=== PATIENT | female | born 1965 | race Caucasian/White ===

== ENCOUNTER 2020-08-20 07:47 | Day surgery (SDC) | payer MEDICARE, MEDICAID, SELFPAY ==
[2020-08-16 15:35] VITALS: BMI 25.4
--- NOTE | 2020-08-19 09:19 | HO.ANESPROP2 ---
Documented by User: Fariha Murcia 08/19/20 09:20 HPI - Anesthesia Eval Consult details Narrative: 54yo F for Colonoscopy chronic opioids [facility] Past Medical History Medical History (Updated 08/16/20 @ 15:39 by Regina West) Arthritis Back pain COPD (chronic obstructive pulmonary disease) History of colitis Lab test negative for COVID-19 virus Surgical History Surgical History (Updated 08/16/20 @ 15:39 by Regina West) H/O colonoscopy History of bunionectomy History of total right knee replacement Hx of cosmetic plastic surgery Hx of elbow surgery Hx of foot surgery Hx of neck surgery Social History Social History Smoking Status: Former smoker Cigarettes Per Day: 3 Years Smoked: 20 Smoked in Last 30 Days: Yes Smoking Quit Date: 04/2020 Use of substances other than those prescribed or required for medical reasons: No Advance Directives Information Provided: No Recently lost weight without trying: No Meds Allergies Allergy/AdvReac Type Severity Reaction Status Date / Time bee pollen [bee stings] Allergy Severe Anaphylaxis Verified 08/16/20 15:43 amoxicillin Allergy Intermediate Hives Verified 08/16/20 15:43 clavulanic acid Allergy Intermediate Hives Verified 08/16/20 15:43 [From Augmentin] Penicillins Allergy Intermediate Hives Verified 08/16/20 15:43 Home Medications Medication Instructions Recorded Confirmed Last Taken Type hydrocodone-acetaminophen 1 tab PO Q4-6H PRN 08/16/20 08/16/20 Unknown History umeclidinium [Incruse Ellipta] 1 inh INHALATION BID 08/16/20 08/16/20 Unknown History Exam Exam Date and Time: August 19, 2020 0919 Height,Weight and Vital Signs: Height 5 ft 4 in Weight 67.132 kg Assessment and Plan Assessment Anesthesia Assessment: Chart Reviewed Documented by User: Deepika Crowell 08/20/20 09:16 [facility] Past Medical History Medical History (Updated 08/16/20 @ 15:39 by Regina West) Arthritis Back pain COPD (chronic obstructive pulmonary disease) History of colitis Lab test negative for COVID-19 virus Family History Family history of problems with anesthesia: No Surgical History Surgical History (Updated 08/16/20 @ 15:39 by Regina West) H/O colonoscopy History of bunionectomy History of total right knee replacement Hx of cosmetic plastic surgery Hx of elbow surgery Hx of foot surgery Hx of neck surgery History of Problems with Anesthesia: No Social History Social History Smoking Status: Former smoker Cigarettes Per Day: 3 Years Smoked: 20 Smoked in Last 30 Days: Yes Smoking Quit Date: 04/2020 Use of substances other than those prescribed or required for medical reasons: No Advance Directives Information Provided: No Recently lost weight without trying: No Meds Allergies Allergy/AdvReac Type Severity Reaction Status Date / Time bee pollen [bee stings] Allergy Severe Anaphylaxis Verified 08/16/20 15:43 amoxicillin Allergy Intermediate Hives Verified 08/16/20 15:43 clavulanic acid Allergy Intermediate Hives Verified 08/16/20 15:43 [From Augmentin] Penicillins Allergy Intermediate Hives Verified 08/16/20 15:43 Home Medications Medication Instructions Recorded Confirmed Last Taken Type hydrocodone-acetaminophen 1 tab PO Q4-6H PRN 08/16/20 08/16/20 Unknown History umeclidinium [Incruse Ellipta] 1 inh INHALATION BID 08/16/20 08/16/20 Unknown History Exam Height,Weight and Vital Signs: Vital Signs Temp Pulse Resp BP Pulse Ox 08/20/20 08:34 98.3 F 67 20 129/87 99 Airway Mallampati Class: II TM Dist: >3cm Neck ROM: Full Heart: RRR Lungs: CTAB Assessment and Plan Assessment Anesthesia Assessment: Anesthesia Plan Discussed and Chart Reviewed Final Anesthetic Review NPO: Yes ASA Class: II Final Preanesthetic Review: No Changes in Pt Med Stat, Meds/Allgs Chart Reviewed, Consent Obtained/Reviewed and Anes Risks/Benef Reviewed Patient Risk: Low Procedure Risk: Low Assessment/Block/Sedation in SS: Assess/Block/Sedation-SS Anesthetic Plan Anesthetic Plan: MAC: Disposition: Standard PACU
[2020-08-20 08:34] VITALS: BP 129/87; PULSE 67; RESP 20; TEMP 36.8; O2SAT 99
--- NOTE | 2020-08-20 08:56 | MHC.SHP ---
Pre-Procedural Eval Section A The patient is an INPATIENT: No Changes since office visit: No Cold of Flu in the past 2 weeks, No New Medical Problems, No Changes in Medication and No Patient answered all questions The History & Physical has been completed within 30 days and I have reviewed it.: Yes Section B Chief Complaint: epigastric pain Allergies: Allergies Allergy/AdvReac Type Severity Reaction Status Date / Time bee pollen [bee stings] Allergy Severe Anaphylaxis Verified 08/16/20 15:43 amoxicillin Allergy Intermediate Hives Verified 08/16/20 15:43 clavulanic acid Allergy Intermediate Hives Verified 08/16/20 15:43 [From Augmentin] Penicillins Allergy Intermediate Hives Verified 08/16/20 15:43 Plan I have reviewed the history and physical and performed a pertinent physical examination on my patient. No changes have occurred unless specified.
[2020-08-20] MEDS: Lactated Ringers 1,000 ML 100 ML IVCONT (09:01)
[2020-08-20 09:30] VITALS: BP 127/88; PULSE 72; RESP 16; TEMP 36.5; O2SAT 99
--- NOTE | 2020-08-20 09:30 | PM.OP ---
Brief Operative Note Date of Service: 08/20/20 Pre-op diagnosis: change in bowels, colitis Post-op diagnosis: other (colitis, ileitis, colon polyp) Procedure: colonoscopy Surgeon: John Chamberlain Anesthesia: MAC Estimated blood loss (mL): 5 Pathology: other (bxs ileum,cecum, r colon, polyp 35cm, sigmoid) Condition: stable Disposition: PACU
[2020-08-20 09:45] VITALS: BP 152/86; PULSE 70; RESP 18; TEMP 36.5; O2SAT 97
--- NOTE | 2020-08-20 10:16 | OP_ITS ---
SURGEON: John Chamberlain MD PREOPERATIVE DIAGNOSIS: POSTOPERATIVE DIAGNOSIS: PROCEDURE PERFORMED: Colonoscopy to the terminal ileum with biopsy. ESTIMATED BLOOD LOSS: COMPLICATIONS: ANESTHESIA: ASSISTANTS: SPECIMENS: INDICATION: Change in bowel habits and colitis. MEDICATIONS: Monitored anesthesia care. DESCRIPTION OF PROCEDURE: History and physical was performed. The risks and benefits of the procedure were explained to the patient and informed consent was obtained. The patient was placed in the left lateral decubitus position. A digital rectal exam was performed and was found to be normal. The Olympus pediatric video colonoscope was introduced into the rectum and advanced to the cecum without difficulty. The cecum was identified by transillumination, palpation, and identification of ileocecal valve. Examination was performed, the scope was removed. She tolerated the procedure well and was returned to Recovery in stable condition. FINDINGS: The terminal ileum showed mild nonspecific ileitis with several less than 5 mm areas of inflammation with erythema and very superficial ulceration. There was also a focal area of colitis measuring approximately 3 cm in diameter involving the area of the appendiceal orifice. Biopsies were obtained from the abnormal mucosa. The remainder of the colon appeared normal. Biopsies were obtained from the right colon and sigmoid colon. There was a small less than 5 mm sessile polyp at 35 cm, which was removed with biopsy forceps. No other polyps were identified. The quality of prep was good. Retroflexed examination showed moderate-sized internal hemorrhoids. IMPRESSION: 1. Ileitis. 2. Focal colitis as above. 3. Colon polyp. 4. Hemorrhoids. RECOMMENDATION: Follow up with the biopsy results. MD AVANI Marks/MODL / [id number]
== END 2020-08-20 10:25 ==
LOC: HO.SSS 07:47
PROVIDERS: PCP Internal Medicine; Visit Provider Internal Medicine Gastroenterology
PROC: 0DJD8ZZ Inspection of Lower Intestinal Tract, Via Natural or Artificial Opening Endoscopic (ICD-10-PCS; CPT 45378; principal; 2020-08-20 09:20)
DX: R19.4 Change in bowel habit (principal); K52.9 Noninfective gastroenteritis and colitis, unspecified; D12.5 Benign neoplasm of sigmoid colon; D12.6 Benign neoplasm of colon, unspecified; K64.8 Other hemorrhoids; Z88.0 Allergy status to penicillin
CPT/HCPCS: 45380; 88305

== ENCOUNTER 2024-02-01 09:13 | Day surgery (SDC) | payer MEDICARE, MEDICAID, SELFPAY ==
[2024-01-30 14:26] VITALS: BMI 22.1
--- NOTE | 2024-01-31 09:09 | HO.ANESPROP2 ---
Documented by User: Fariha Murcia NP 01/31/24 09:10 HPI - Anesthesia Eval Consult details Narrative: 58yo F for Upper Endoscopy and Colonoscopy [facility] Past Medical History Medical History Depression Lung nodules History of colitis Arthritis Back pain COPD (chronic obstructive pulmonary disease) Family History Family history of problems with anesthesia: No Surgical History Surgical History History of partial hysterectomy Hx of cosmetic plastic surgery Hx of elbow surgery Hx of foot surgery History of bunionectomy H/O colonoscopy Hx of neck surgery History of total right knee replacement History of Problems with Anesthesia: No Social History Social History Patient Tobacco Use Status: Current someday Tobacco user Tobacco use type: Cigarette Cigarettes Per Day: 3 Years Smoked: 20 Use of substances other than those prescribed or required for medical reasons: No Are you DNR?: No Advance Directives: No Advance Directives Information Provided: Yes Meds Allergies Allergy/AdvReac Type Severity Reaction Status Date / Time bee pollen [bee stings] Allergy Severe Anaphylaxis Verified 08/16/20 15:43 amoxicillin Allergy Intermediate Hives Verified 08/16/20 15:43 clavulanic acid Allergy Intermediate Hives Verified 08/16/20 15:43 [From Augmentin] Penicillins Allergy Intermediate Hives Verified 08/16/20 15:43 Home Medications ?Medication ?Instructions ?Recorded ?Confirmed ?Last Taken ?Type hydrocodone 10 mg-acetaminophen 1 tab PO Q4-6H PRN Pain 08/16/20 01/30/24 Unknown History 325 mg tablet albuterol sulfate 90 mcg/actuation 2 puff inhalation Q4H PRN 01/30/24 01/30/24 Unknown History aerosol inhaler (Ventolin HFA) Shortness Of Breath Or Wheezing fluticasone furoate 100 1 inh inhalation DAILY 01/30/24 01/30/24 Unknown History mcg/actuation blister powder for inhalation (Arnuity Ellipta) fluticasone propionate 50 1 spray intranasal DAILY 01/30/24 01/30/24 Unknown History mcg/actuation nasal spray,suspension sertraline 100 mg tablet 150 mg PO DAILY 01/30/24 01/30/24 Unknown History Exam Height,Weight and Vital Signs: Height 5 ft 4 in Weight 58.513 kg Assessment and Plan Assessment Anesthesia Assessment: Chart Reviewed Final Anesthetic Review Family History of Problems with Anesthesia: No History of Problems with Anesthesia: No Documented by User: Erica Adam MD 02/01/24 11:01 [facility] Past Medical History Medical History Depression Lung nodules History of colitis Arthritis Back pain COPD (chronic obstructive pulmonary disease) Surgical History Surgical History History of partial hysterectomy Hx of cosmetic plastic surgery Hx of elbow surgery Hx of foot surgery History of bunionectomy H/O colonoscopy Hx of neck surgery History of total right knee replacement Social History Social History Patient Tobacco Use Status: Current someday Tobacco user Tobacco use type: Cigarette Cigarettes Per Day: 3 Years Smoked: 20 Use of substances other than those prescribed or required for medical reasons: No Are you DNR?: No Advance Directives: No Advance Directives Information Provided: Yes Meds Allergies Allergy/AdvReac Type Severity Reaction Status Date / Time bee pollen [bee stings] Allergy Severe Anaphylaxis Verified 08/16/20 15:43 amoxicillin Allergy Intermediate Hives Verified 08/16/20 15:43 clavulanic acid Allergy Intermediate Hives Verified 08/16/20 15:43 [From Augmentin] Penicillins Allergy Intermediate Hives Verified 08/16/20 15:43 Home Medications ?Medication ?Instructions ?Recorded ?Confirmed ?Last Taken ?Type hydrocodone 10 mg-acetaminophen 1 tab PO Q4-6H PRN Pain 08/16/20 01/30/24 Unknown History 325 mg tablet albuterol sulfate 90 mcg/actuation 2 puff inhalation Q4H PRN 01/30/24 01/30/24 Unknown History aerosol inhaler (Ventolin HFA) Shortness Of Breath Or Wheezing fluticasone furoate 100 1 inh inhalation DAILY 01/30/24 01/30/24 Unknown History mcg/actuation blister powder for inhalation (Arnuity Ellipta) fluticasone propionate 50 1 spray intranasal DAILY 01/30/24 01/30/24 Unknown History mcg/actuation nasal spray,suspension sertraline 100 mg tablet 150 mg PO DAILY 01/30/24 01/30/24 Unknown History Exam Airway Mallampati Class: II TM Dist: >3cm Neck ROM: Full Heart: rrr Lungs: cta Assessment and Plan Assessment Anesthesia Assessment: Anesthesia Plan Discussed Final Anesthetic Review NPO: Yes ASA Class: III Final Preanesthetic Review: No Changes in Pt Med Stat, Meds/Allgs Chart Reviewed, Consent Obtained/Reviewed and Anes Risks/Benef Reviewed Patient Risk: Intermediate Procedure Risk: Low Anesthetic Plan Anesthetic Plan: MAC: Disposition: Standard PACU
[2024-02-01 10:12] VITALS: BP 125/80; PULSE 62; RESP 18; TEMP 36.3; O2SAT 96
--- NOTE | 2024-02-01 10:16 | MHC.SHP ---
Pre-Procedural Eval Section A - 24 Hr Update-Section A only Date of Service: 02/01/24 Section B - Complete if H&P > 30 days Chief Complaint: gerd,change in bowel habit Details of Present Illness: see H&P no changes Relevant Family History (Specify if Yes): No Relevant Social History: None Present Medications: see Short Stay Collaborative assessment Medical History: No relevant PMH History of Previous Operations: No relevant previous surgery Allergies: Allergies Allergy/AdvReac Type Severity Reaction Status Date / Time bee pollen [bee stings] Allergy Severe Anaphylaxis Verified 08/16/20 15:43 amoxicillin Allergy Intermediate Hives Verified 08/16/20 15:43 clavulanic acid Allergy Intermediate Hives Verified 08/16/20 15:43 [From Augmentin] Penicillins Allergy Intermediate Hives Verified 08/16/20 15:43 Review of Systems Sugical H&P ROS: Negative: Constitution, Cardiovascular, Respiratory, Neurological, Psychiatric, Hem-Onc, Allergic/Immunologic, Gastrointestinal, Genitourinary, Musculoskeletal, Integumentary, Endocrine and Eyes/Ears/Nose/Throat Exam Surgical H&P Exam: Normal: HEENT, Normal: Heart, Normal: Lungs, Normal: Extremities, Normal: Abdomen, Normal: Skin and Normal: Neurological Plan Diagnosis/Plan: Unchanged I have reviewed the history and physical and performed a pertinent physical examination on my patient. No changes have occurred unless specified. Time Spent With Patient Time: Total time managing care of this patient today ____ minutes.
[2024-02-01] MEDS: Lactated Ringers 1,000 ML 100 ML IVCONT (10:21)
[2024-02-01] MEDS: Albuterol Sulfate (0.083%) 2.5 MG/3 ML VIAL.NEB INHALE (10:27)
--- NOTE | 2024-02-01 12:32 | PC.NURSE ---
pt updated throughout preop stay. delay in room due to prolonged procedure of pt before her and anesthesia unavailability. frequent checks for comfort with warm blankets appiled and bathroom breaks x2. pt unhappy regarding wait
[2024-02-01 13:22] VITALS: BP 131/71; PULSE 71; RESP 16; TEMP 36.3; O2SAT 97
[2024-02-01 13:37] VITALS: BP 148/85; PULSE 64; RESP 16; TEMP 36.3; O2SAT 99
--- NOTE | 2024-02-01 21:05 | OP_ITS ---
DATE OF SERVICE: 02/01/2024 SURGEON: John Chamberlain MD INDICATIONS: Gastroesophageal reflux disease and change in bowel habits. PREOPERATIVE DIAGNOSIS: POSTOPERATIVE DIAGNOSIS: PROCEDURE PERFORMED: ESTIMATED BLOOD LOSS: COMPLICATIONS: ANESTHESIA: Monitored anesthesia care. ASSISTANTS: SPECIMENS: PROCEDURES PERFORMED: Upper endoscopy with biopsy, colonoscopy to the terminal ileum with biopsy. DESCRIPTION OF PROCEDURE: A history and physical were performed. The risks and benefits of the procedure were explained to the patient, and informed consent was obtained. The patient was placed in the left lateral decubitus position. The Olympus video gastroscope was introduced into the esophagus, stomach, and duodenum. Examination was performed, and the scope was removed. She was repositioned for colonoscopy. A digital rectal exam was performed and was found to be normal. The Olympus pediatric video colonoscope was introduced into the rectum and advanced to the cecum. The cecum was identified by transillumination, palpation, and identification of ileocecal valve. Examination was performed, and the scope was removed. She tolerated the procedure well and was returned to recovery in stable condition. FINDINGS: Upper endoscopy: 1. Esophagus. The esophagus showed an irregular EG junction. There was a 4 cm hiatal hernia. Biopsies were obtained from the EG junction. 2. Stomach. The stomach was normal. There was no ulceration. Biopsies were obtained from the antrum. 3. Duodenum, the bulb and second portion were normal. Biopsies were obtained from the 2nd portion. Colonoscopy: The terminal ileum was examined and appeared normal. This was biopsied. The colon showed a thin coating of stool, which limited the sensitivity of the examination for detection of small polyps. This was washed and suctioned. This was present throughout the colon. After irrigation, no colitis was identified endoscopically. The area around the ileocecal valve and the appendiceal orifice was carefully washed and examined. Biopsies were obtained from the cecum, right colon, sigmoid colon and retroflexed examination was normal. There were moderate-sized internal hemorrhoids. IMPRESSION: 1. Hiatal hernia. 2. Gastroesophageal reflux disease. 3. Normal colonoscopy. RECOMMENDATIONS: 1. Follow up the biopsy results. 2. Repeat colonoscopy is recommended in 10 years for average-risk individuals. MD AVANI Marks/FERNANDA / [id number]
== END 2024-02-01 13:55 | disposition home or self-care (01) ==
PROVIDERS: PCP Internal Medicine; Visit Provider Internal Medicine Gastroenterology
PROC: (CPT 45380; principal; 2024-02-01 11:10)
DX: R19.4 Change in bowel habit (principal); Z83.719 Family history of colon polyps, unspecified; K64.8 Other hemorrhoids; K21.9 Gastro-esophageal reflux disease without esophagitis; K22.89 Other specified disease of esophagus; K44.9 Diaphragmatic hernia without obstruction or gangrene; Z87.19 Personal history of other diseases of the digestive system; J44.9 Chronic obstructive pulmonary disease, unspecified; R91.8 Other nonspecific abnormal finding of lung field; M54.50 Low back pain, unspecified; Z79.899 Other long term (current) drug therapy; Z79.51 Long term (current) use of inhaled steroids; Z88.0 Allergy status to penicillin; Z88.1 Allergy status to other antibiotic agents; Z98.890 Other specified postprocedural states; F17.210 Nicotine dependence, cigarettes, uncomplicated
CPT/HCPCS: 45380; 43239; 88305; 88313; 88342; J1100; J2250; J2704

== ENCOUNTER 2025-03-17 06:33 | Day surgery (SDC) | payer MEDICARE, MEDICAID, SELFPAY ==
--- OUTSIDE RECORDS SUMMARY | 2025-02-23 09:15 | XMS_ITS ---
Author Organization [facility] Address [address] [place] [phone] Care Team Providers Care Recreation Technician Name Role Phone Rach CASPER, Adair Primary Care Provider Buzz Chamberlain Jr, John Canseco MJ DICKERSON Unavailable Unavailable REASON FOR VISIT gerd Encounters Encounter Location Date Provider Diagnosis [facility] [address] [place] [phone] 02/23/2025 John Chamberlain Jr Plan Of Treatment Next Appt Details Provider Name:John santoyo Jr, 03/17/2025 01:40:00 PM, [address] [place] [address], [id number], Progress Notes * LASHELL JUNIOR LDOB:[birth year] (59 yo F)Acc No.[id number]:02/23/2025 Progress Notes Patient: Eusebio GOLDLASHELL Provider: Robby Chamberlain MD :1965 A ge:59 Y S ex:Female Date:02/23/2025 Address:[address] [id number] Pcp:Adair Loyd MD Subjective: * Chief Complaints: * 1 . Gerd. * Medical History: Objective: * Vitals: Assessment: Plan: * Treatment: * * The named appointment provid er may or may not be the originator of this progress note, and it is not deemed complete until electronically signed by the appointment provider. Sign off status: Pending * Provider: Robby Chamberlain MD Date: 0 02/23/2025 Generated for Gerry gallardo/Tiffani/Romina on: 0 03/11/2025 11:54 AM EDT
--- OUTSIDE RECORDS SUMMARY | 2025-03-06 11:54 | XMS_ITS ---
Author Organization [facility] Address [address] [place] [phone] Care Team Providers Care Registered Medical Assistant Name Role Phone Rach CASPER, Adair Primary Care Provider Buzz Chamberlain Jr, John Canseco [phone] TUANMJ Unavailable Unavailable REASON FOR VISIT colonoscopy Problems Problem Type SNOMED Code ICD Code Onset Dates Problem Status W/U Status Risk Notes Problem Information temporarily unavailable Abn findings-GI tract (R93.3) Active confirmed Problem Information temporarily unavailable Diarrhea (R19.7) Active confirmed Encounters Encounter Location Date Provider Diagnosis [facility] [address] [place] [phone] 03/06/2025 John Chamberlain Jr Abn findings-GI tract R93.3 and Diarrhea R19.7 Assessments Encounter Date Diagnosis (ICD Code) Assessment Notes Treatment Notes Treatment Clinical Notes Section Notes 03/06/2025 Abn findings-GI tract (ICD-10 - R93.3) 03/06/2025 Diarrhea (ICD-10 - R19.7) Plan Of Treatment Future Test Test Name Order Date COLONOSCOPY 03/06/2025 Next Appt Details Provider Name:John santoyo Jr, 03/17/2025 01:40:00 PM, [address] [place] [address] , [place], [place], [phone], Progress Notes * LASHELL JUNIOR LDOB:[birth year] (59 yo F)Acc No.[id number]:03/06/2025 Patient: LASHELL VIVAR :1965 A ge:59 Y S ex:Female Address:[address] [place] [address], [id number] Subjective: * Chief Complaints: * C olonoscopy * Medical History: * Surgical History: * Hospitalization/Major Diagno stic Procedure: * Medications: Objective: * Vitals: * Physical Examination: Assessment: * Assessment: 1. A bn findings-GI tract - R93.3 (Primary) 2 . D iarrhea - R19.7 ? Plan: * Treatment: 2. D iarrhea P rocedure: COLONOSCOPY (Ordered for 03/06/2025) * Procedure Codes: * true * Date: Generated for Gerry gallardo/Tiffani/Cristobalitting on: 0 03/11/2025 11:50 AM EDT
--- OUTSIDE RECORDS SUMMARY | 2025-03-11 11:51 | XMS_ITS | Encounter Summary ---
Author Organization [facility] Address [address] [facility] [address] [place] [phone] Phone Care Team Providers Care Flower Planter Name Role Phone Adair Loyd DO Primary Care Provider [phone] Self-Referred, Patient Unavailable Unavailab le Encounter Details Date Type Department Care Team (Late st Contact Info) Description 08/08/2021 Procedure Pass [facility] [address] [place] [address] Social History Tobacco Use Types Packs/Day Years Used Date Smoking Tobacco: Every Day Cigarettes 0.3 30 Smokeless Tobacco: Never Alcohol Use Standard Drinks/Week Comments Yes 0 (1 standard drink = 0.6 oz pur e alcohol) social Comments No Sex and Gender Information Value Date Recorded Sex Assigned at Not on file Legal Sex Female 10:54 AM EST Gender Identity Not on file Sexual Orientation Not on file documented as of this encounter Plan of Treatment Not on file documented as of this encounter Visit Diagnoses Not on filedocumented in this encounter Care Teams Flower Planter Relationship Specialty Start Date End Date Adair Loyd DO [address] [place] [address] [address] [place] [address] PCP - General Internal Medicine 07/07/21 Self-Referred, Patient 07/07/21 documented as of this encounter Additional Source Comments The information contained in this document represents components of the legal health record. It is not the complete legal health record.[facility]
--- OUTSIDE RECORDS SUMMARY | 2025-03-11 11:53 | XMS_ITS | Clinical Summary ---
Author Organization [address] [facility] Address [address] [place] [address] Phone Care Team Providers Care Food And Beverage Attendant Name Role Phone Adair Loyd Primary Care Provider [phone] Allergies Active Allergy Reactions Criticality Noted Date Comments Bee Pollen 08/01/2021 Trouble breathing Penicillin G Benzathin,Procain Hives 07/13/2021 And itching Penicillins Hives,Unknown 07/13/2021 And tching Itching Medications omeprazole (PriLOSEC) [address] capsule Take 2 capsules (20 mg total) by mouth daily. Pt taking once a day Active LORazepam (ATIVAN) 0.5 mg tablet 1 tablet (0.5 mg total). 022 Active cyanocobalami n (VIT B-12) 1,000 mcg tablet extended release ER tablet Take 1 tablet (1,000 mcg total) by mouth 1 (one) time each day. for 30 days 025 Active EPINEPHrine (EPIPEN) 0.3 mg/0.3 mL injection INJECT CONTENTS OF 1 PEN INTRAMUSCULARLY NEEDED FOR ALLERGIC REACTION DIRECTED Active sertraline (ZOLOFT) 100 mg tablet Take 1.5 tablets (150 mg total) by mouth 1 (one) time each day. Active albuterol HFA (PROAIR HFA ; PROVENTIL HFA ; VENTOLIN HFA) 90 mcg/actuation inhaler inhale 2 puffs into the lungs every 4 hours as needed for 30 days Active Arnuity Ellipta 100 mcg/actuation blister with device inhaler INHALE 1 PUFF INTO THE LUNGS EVERY DAY FOR 30 DAYS 025 Active fluticasone propionate (FLONASE) 50 mcg/actuation nasal spray Administer 1 spray into each nostril 1 (one) time each day. 025 Active HYDROcodone-a cetaminophen (NORCO) 10-325 mg per tablet take 1 tablet by mouth twice a day as needed for 30 days 025 Active alendronate (FOSAMAX) 70 mg tablet Take 1 tablet (70 mg total) by mouth every 7 (seven) days. 12 tablet 1 025 Active aspirin 325 mg tablet Take 1 tablet (325 mg total) by mouth 1 (one) time each day. Active cholecalcifer ol (VITAMIN D-3) 1,250 mcg (50,000 unit) capsule TAKE 1 CAPSULE ONCE WEEKLY WITH FOOD FOR 8 WEEKS. 4 capsule 1 025 Active cholecalcifer ol (VITAMIN D-3) 1,250 mcg (50,000 unit) capsule Take 1 capsule once weekly with food for 8 weeks. 4 each 1 025 2024 Discontinued Active Problems Problem Noted Date Diagnosed Date Hypogammaglobulinemia (CMS/HCC V24) 12/04/2024 Screening for thyroid disorder 09/22/2024 Age related osteoporosis 09/22/2024 Encounters Date Type Department Care Team Description 12/09/2024 Telephone [facility] [address] [place] [id number] Tony Beltre MD from Last 3 Months Social History Tobacco Use Types Packs/Day Years Used Date Smoking Tobacco: Never Assessed Comments Unknown Sex and Gender Information Value Date Recorded Sex Assigned at Not on file Legal Sex Female 2:09 PM EST Gender Identity Not on file Sexual Orientation Not on file Last Filed Vital Signs Vital Sign Reading Time Taken Comments Blood Pressure 149/88 12/04/2024 1:08 PM EDT Pulse 72 12/04/2024 1:08 PM EDT Temperature 36.1 C (97 F) 12/04/2024 1:08 PM EDT Respiratory Rate - - Oxygen Saturation 95% 12/04/2024 1:08 PM EDT Inhaled Oxygen Concentration - - Weight 65.8 kg (145 lb) 12/04/2024 1:08 PM EDT Height 162.6 cm (5' 4 ) 12/04/2024 1:08 PM EDT Body Mass Index 24.89 12/04/2024 1:08 PM EDT Plan of Treatment Health Maintenance Due Date Last Done Comments Breast Cancer Screening 1965 Zoster Vaccines (1 of 2) 10/26/1982 Cervical Cancer Screening: P ap Smear 10/26/1984 Pneumococcal Vaccine: 50+ Years (2 of 2 - PCV) 03/30/2012 03/30/2011 Hepatitis B Vaccines (2 of 3 - 19+ 3-dose series) 06/08/2014 05/11/2014 COVID-19 Vaccine (3 - Modern a risk series) 08/29/2021 08/01/2021, 07/04/2021 Colorectal Cancer Screening: Colonoscopy 06/07/2022 HIV Screening 06/07/2022 Hepatitis C Screening 06/07/2022 Medicare Annual Wellness Visit 06/07/2022 Osteoporosis Screening (Bone Density Screening) 06/07/2022 Social Influencers of Health Screening 06/07/2022 RSV Immunization Adult Patients (1 - Risk 60-74 years 1-dose series) 2023 Depression Screening 07/09/2024 Influenza Vaccine (#1) 2025 05/17/2020 Cholesterol Screening (Lipid Panel) 08/11/2029 08/11/2024 DTaP,Tdap,and Td Vaccines (2 - Td or Tdap) 05/17/2033 05/17/2023 HIB Vaccines Aged Out No longer eligi ble based on patient's age to complete this topic HPV Vaccines Aged Out No longer eligi ble based on patient's age to complete this topic Hepatitis A Vaccines Aged Out No long er eligible based on patient's age to complete this topic IPV Vaccines Aged Out No longer eligi ble based on patient's age to complete this topic MMR Vaccines Aged Out No longer eligi ble based on patient's age to complete this topic Meningococcal ACWY Vaccine Aged Out N o longer eligible based on patient's age to complete this topic Meningococcal B Vaccine Aged Out No l onger eligible based on patient's age to complete this topic RSV Immunization Patients Under 20 months Aged Out No longer eligible b ased on patient's age to complete this topic Varicella Vaccines Aged Out No longer eligible based on patient's age to complete this topic Procedures Procedure Name Priority Date/Time Associated Diagnosis Comments OVA AND PARASITE EXAMINATION Routine 02/13/2025 3:28 PM EDT Diarrhea CLOSTRIDIUM DIFFICILE TOXIN Routine 02/13/2025 3:28 PM EDT Diarrhea CLOSTRIDIUM DIFFICILE PCR Routine 01/28/2025 2:25 PM EDT Diarrhea RLQ abdominal pain Abdominal pain Blood in stool Diarrhea of presumed infectious origin Stomach ache Habit vomiting Abdominal pain, right lower quadrant 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, CMS/HCC V28) Ulcerative colitis, unspecified with rectal bleeding (CMS/HCC V24, CMS/HCC V28) Elevated hemoglobin (CMS/HCC V24) Enteritis CLOSTRIDIUM DIFFICILE TOXIN Routine 01/28/2025 2:25 PM EDT Diarrhea RLQ abdominal pain Abdominal pain Blood in stool Diarrhea of presumed infectious origin Stomach ache Habit vomiting Abdominal pain, right lower quadrant 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, CMS/HCC V28) Ulcerative colitis, unspecified with rectal bleeding (CMS/HCC V24, CMS/HCC V28) Elevated hemoglobin (CMS/HCC V24) Enteritis OVA AND PARASITE EXAMINATION Routine 01/28/2025 2:25 PM EDT Diarrhea RLQ abdominal pain Abdominal pain Blood in stool Diarrhea of presumed infectious origin Stomach ache Habit vomiting Abdominal pain, right lower quadrant 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, CMS/HCC V28) Ulcerative colitis, unspecified with rectal bleeding (CMS/HCC V24, CMS/HCC V28) Elevated hemoglobin (CMS/HCC V24) Enteritis GASTROINTESTINAL PATHOGENS BY PCR Routine 01/28/2025 2:25 PM EDT Diarrhea RLQ abdominal pain Abdominal pain Blood in stool Diarrhea of presumed infectious origin Stomach ache Habit vomiting Abdominal pain, right lower quadrant 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, CMS/HCC V28) Ulcerative colitis, unspecified with rectal bleeding (CMS/HCC V24, CMS/HCC V28) Elevated hemoglobin (CMS/HCC V24) Enteritis BILIRUBIN DUPLICATE PROCEDURE TO ORDER Routine 01/16/2025 11:06 AM EDT Diarrhea RLQ abdominal pain Abdominal pain Blood in stool URINALYSIS WITH REFLEX MICROSCOPIC Routine 01/16/2025 11:06 AM EDT Diarrhea RLQ abdominal pain Abdominal pain Blood in stool CBC WITH AUTO DIFFERENTIAL Routine 01/16/2025 11:06 AM EDT Diarrhea RLQ abdominal pain Abdominal pain Blood in stool URINALYSIS WITH REFLEX MICROSCOPIC Routine 01/16/2025 11:06 AM EDT Diarrhea RLQ abdominal pain Abdominal pain Blood in stool AMYLASE Routine 01/16/2025 11:06 AM EDT Diarrhea RLQ abdominal pain Abdominal pain Blood in stool LIPASE Routine 01/16/2025 11:06 AM EDT Diarrhea RLQ abdominal pain Abdominal pain Blood in stool C-REACTIVE PROTEIN Routine 01/16/2025 11 :06 AM EDT Diarrhea RLQ abdominal pain Abdominal pain Blood in stool SEDIMENTATION RATE Routine 01/16/2025 11 :06 AM EDT Diarrhea RLQ abdominal pain Abdominal pain Blood in stool COMPREHENSIVE METABOLIC PANEL Routine 01/16/2025 11:06 AM EDT Diarrhea RLQ abdominal pain Abdominal pain Blood in stool CBC AND DIFFERENTIAL Routine 01/16/2025 11:06 AM EDT Diarrhea RLQ abdominal pain Abdominal pain Blood in stool CULTURE URINE Routine 01/16/2025 11:06 AM EDT Diarrhea RLQ abdominal pain Abdominal pain Blood in stool LIPID PANEL WITH REFLEX TO DIRECT LDL Routine 08/11/2024 2:38 PM EST COPD (chronic obstructive pulmonary disease) ([facility] V24, [facility] V28) Routine general medical examination at a health care facility Impaired fasting glucose Screening for lipoid disorders Screening for thyroid disorder Abnormal finding of blood chemistry, unspecified from Last 3 Months or Most Recently Relevant to Health Maintenance Results * Ova and parasite examination (02/13/2025 3:28 PM EDT) Only the most recent of2 resultswithin the time period is included. Ova and Parasite No Ova or Parasite seen. 02/19/2025 2:[address] [facility] Stool Rectum structure / Unknown Non-blood Collection / Unknown 02/13/2025 3:28 PM EDT 02/13/2025 3:[address] [facility] - 02/19/2025 2:06 PM EDT Special test request required for Coccidia and Microsporidia. us Antonia Kuhn NP LAB MICROBIOLOGY - GENE RAL ORDERABLES Final Result Performing Organization Address [facility] [address]/[facility] de Phone Number [facility] [address] [place] [address], * Clostridium difficile toxin (02/13/2025 3:28 PM EDT) Only the most recent of2 resultswithin the time period is included. Pathologist [facility] Clostridium difficile GDH Antigen Negative Negative 02/13/2025 8:[address] [facility] C difficile Toxins A+B, EIA Negative Negative 02/13/2025 8:[address] [facility] Comment:NEGATIVE FOR TOXIN P RODUCING CLOSTRIDIOIDES DIFFICILE, NO ADDITIONAL TESTING IS NECESSARY. Stool Rectum structure / Unknown Non-blood Collection / Unknown 02/13/2025 3:28 PM EDT 02/13/2025 3:28 PM EDT us Antonia Kuhn NP LAB MICROBIOLOGY - GENE RAL ORDERABLES Final Result Performing Organization Address [facility] [address]/ZIP Co de Phone Number [facility] [address] [place] [address], * Gastrointestinal pathogens molecular study (01/28/2025 2:25 PM EDT) Campylobacter Detection by PCR Not Detected Not Detected LAB MICROBIOLOGY METHOD 5 8:[address] [facility] Plesiomonas shigelloides Detection by PCR Not Detected Not Detected LAB MICROBIOLOGY METHOD 5 8:[address] [facility] Salmonella Detection by PCR Not Detected Not Detected LAB MICROBIOLOGY METHOD 5 8:[address] [facility] Vibrio Detection by PCR Not Detected Not Detected LAB MICROBIOLOGY METHOD 5 8:[address] [facility] Vibrio cholerae Detection by PCR Not Detected Not Detected LAB MICROBIOLOGY METHOD 5 8:[address] [facility] Yersinia enterocolitica Detection by PCR Not Detected Not Detected LAB MICROBIOLOGY METHOD 5 8:[address] [facility] Enteroaggregative E coli EAEC Detection by PCR Not Detected Not Detected LAB MICROBIOLOGY METHOD 5 8:[address] [facility] Enteropathogenic E coli EPEC Detection Not Detected Not Detected LAB MICROBIOLOGY METHOD 5 8:[address] [facility] Enterotoxigenic E coli ETEC LTST Detection Not Detected Not Detected LAB MICROBIOLOGY METHOD 5 8:[address] [facility] Shiga-like toxin producing E coli STEC STX1 STX2 Det Not Detected Not Detected LAB MICROBIOLOGY METHOD 5 8:[address] [facility] Shigella Enteroinvasive E coli EIEC Detection Not Detected Not Detected LAB MICROBIOLOGY METHOD 5 8:[address] [facility] Cryptosporidium Detection by PCR Not Detected Not Detected LAB MICROBIOLOGY METHOD 5 8:[address] [facility] Cyclospora cayetanensis Detection by PCR Not Detected Not Detected LAB MICROBIOLOGY METHOD 5 8:[address] [facility] Entamoeba histolytica Detection by PCR Not Detected Not Detected LAB MICROBIOLOGY METHOD 5 8:[address] [facility] Giardia lamblia Detection by PCR Not Detected Not Detected LAB MICROBIOLOGY METHOD 5 8:[address] [facility] Adenovirus F 40 41 Detection by PCR Not Detected Not Detected LAB MICROBIOLOGY METHOD 5 8:[address] [facility] Astrovirus Detection by PCR Not Detected Not Detected LAB MICROBIOLOGY METHOD 5 8:[address] [facility] Norovirus GI GII Detection by PCR Detected LAB MICROBIOLOGY METHOD 5 8:[address] [facility] Sapovirus Detection by PCR Not Detected Not Detected LAB MICROBIOLOGY METHOD 5 8:[address] [facility] Rotavirus A Detection by PCR Not Detected Not Detected LAB MICROBIOLOGY METHOD 5 8:[address] [facility] Stool Rectum structure / Unknown Non-blood Collection / Unknown 01/28/2025 2:25 PM EDT 01/28/2025 2:25 PM EDT [facility] - 01/28/2025 8:36 PM EDT PCR testing is much more sensitive than traditional techniques and allows for the detection of low numbers of stool pathogens. The clinical correlation of PCR results with the need for treatment and clinical outcomes has not been established. Therefore the results of PCR testing for stool pathogens must be taken into clinical context when making treatment decisions. This is a diagnostic test only, repeat testing for cure is not advised. You may consider infectious disease consult for additional guidance. Testing Performed by [employer] us Echavarria Faulkner PROOF TESTER LAB MICROBIOLOGY - GENERAL ORDER RICARDO Final Result [facility] [address] [place] [address], * (ABNORMAL) Clostridium difficile molecular study (01/28/2025 2:25 PM EDT) Pathologist [facility] Clostridium difficile PCR Positive (AA) Negative LAB MICROBIOLOGY METHOD 01/28/2025 9:[address] [facility] Comment: CRITICAL RESULT POSITIVE FOR TOXIN PRODUCING CLOSTRIDIOIDES DIFFICILE, NO ADDITIONAL TESTING IS NECESSARY. REPEAT SAMPLES SHOULD NOT BE SUBMITTED FOR TEST OF CURE. Stool Rectum structure / Unknown Non-blood Collection / Unknown 01/28/2025 2:25 PM EDT 01/28/2025 7:44 PM EDT us Echavarria Faulkner PROOF TESTER LAB MICROBIOLOGY - GENERAL ORDER RICARDO Final Result Performing Organization Address [facility] [address]/ZIP Co de Phone Number [facility] [address] [place] [address], [place] [phone] * Bilirubin duplicate procedure to order (01/16/2025 11:06 AM EDT) [facility] Total Bilirubin 0.2 0.0 - 1.4 mg/dL LAB CHEMISTRY METHOD 01/16/2025 4:[address] [facility] Bilirubin, Direct <0.1 0.0 - 0.3 mg/dL LAB CHEMISTRY METHOD 01/16/2025 4:[address] [facility] Bilirubin, Indirect LAB CHEMISTRY METHOD 01/16/2025 4:[address] [facility] Comment:Unable to calculate Indirect Bilirubin. Blood Venous blood specimen / Unknown Venipuncture / Unknown 01/16/2025 11:06 AM EDT 01/16/2025 11:06 AM EDT Echavarria Faulkner PROOF TESTER LAB BLOOD ORDERABLES Final Resul t Performing Organization Address [facility] [address]/ZIP Co de Phone Number [facility] [address] [place] [address], [place] [phone] * Urinalysis with reflex microscopic (01/16/2025 11:06 AM EDT) [facility] Signature Specific [place] Urine 1.023 1.003 - 1.030 LAB URINALYSIS - AUTOMATED METHOD 01/16/2025 2:[address] [facility] pH, Urine 6.0 5.0 - 8.0 pH LAB URINALYSIS - AUTOMATED METHOD 01/16/2025 2:[address] [facility] Leukocytes, Urine Negative Negative LAB URINALYSIS - AUTOMATED METHOD 01/16/2025 2:[address] [facility] Nitrite, Urine Negative Negative LAB URINALYSIS - AUTOMATED METHOD 01/16/2025 2:[address] [facility] Protein, Urine Trace <=Trace mg/dL LAB URINALYSIS - AUTOMATED METHOD 01/16/2025 2:58 PM [facility] Glucose, Urine Negative Negative mg/dL LAB URINALYSIS - AUTOMATED METHOD 01/16/2025 2:58 PM [facility] Ketones, Urine Negative Negative mg/dL LAB URINALYSIS - AUTOMATED METHOD 01/16/2025 2:58 PM [facility] Urobilinogen, Urine 1.0 0.2 - 1.0 mg/dL LAB URINALYSIS - AUTOMATED METHOD 01/16/2025 2:58 PM [facility] Bilirubin, Urine Negative Negative LAB URINALYSIS - AUTOMATED METHOD 01/16/2025 2:58 PM [facility] Blood, Urine Negative Negative LAB URINALYSIS - AUTOMATED METHOD 01/16/2025 2:58 PM [facility] Urine Urine specimen obtained by clean catch procedure / Unknown Non-blood Collection / Unknown 01/16/2025 11:06 AM EDT 01/16/2025 11:06 AM EDT us Echavarria Faulkner PROOF TESTER LAB URINE ORDERABLES Final Resul t [facility] [address] [place] [address], [place] [phone] * (ABNORMAL) CBC auto differential (01/16/2025 11:06 AM EDT) [facility] WBC 9.7 4.8 - 10.8 K/mcL LAB HEMETOLOGY METHOD 01/16/2025 2:[address] [facility] RBC 4.50 3.80 - 4.80 M/mcL LAB HEMETOLOGY METHOD 01/16/2025 2:[address] [facility] Hemoglobin 13.7 11.5 - 16.0 g/dL LAB HEMETOLOGY METHOD 01/16/2025 2:[address] [facility] Hematocrit 42.3 35.0 - 47.0 % LAB HEMETOLOGY METHOD 01/16/2025 2:[address] [facility] MCV 93.6 79.0 - 98.0 FL LAB HEMETOLOGY METHOD 01/16/2025 2:[address] [facility] MCH 30.3 27.0 - 32.0 pcg LAB HEMETOLOGY METHOD 01/16/2025 2:[address] [facility] MCHC 32.4 32.0 - 37.0 g/dL LAB HEMETOLOGY METHOD 01/16/2025 2:[address] [facility] RDW 14.2 11.0 - 15.0 % LAB HEMETOLOGY METHOD 01/16/2025 2:[address] [facility] Platelets 322 130 - 400 K/mcL LAB HEMETOLOGY METHOD 01/16/2025 2:[address] [facility] MPV 10.7 7.0 - 11.0 FL LAB HEMETOLOGY METHOD 01/16/2025 2:[address] [facility] NRBC 0.0 <1.0 % LAB HEMETOLOGY METHOD 01/16/2025 2:[address] [facility] NRBC Absolute 0.00 <0.10 K/mcL LAB HEMETOLOGY METHOD 01/16/2025 2:[address] [facility] Neutrophils Relative 72.6 % LAB HEMETOLOGY METHOD 01/16/2025 2:58 PM [facility] Lymphocytes Relative 17.0 % LAB [facility]EMETOLOGY [facility] Monocytes Relative 7.7 % LAB HEMETOLOGY METHOD 01/16/2025 2:58 PM [facility] Eosinophils Relative 1.5 % LAB HEMETOLOGY METHOD 01/16/2025 2:58 PM [facility] Basophils Relative 0.8 % LAB HEMETOLOGY METHOD 01/16/2025 2:58 PM [facility] Immature Granulocytes Relative 0.4 % LAB HEMETOLOGY METHOD 01/16/2025 2:58 PM [facility] Neutrophils Absolute 7.01(H) 1.50 - 7.00 K/mcL LAB HEMETOLOGY METHOD 01/16/2025 2:58 PM [facility] Lymphocytes Absolute 1.65 1.00 - 5.00 K/mcL LAB HEMETOLOGY METHOD 01/16/2025 2:58 PM [facility] Monocytes Absolute 0.75 0.20 - 1.00 K/mcL LAB HEMETOLOGY METHOD 01/16/2025 2:58 PM [facility] Eosinophils Absolute 0.15 0.00 - 0.50 K/mcL LAB HEMETOLOGY METHOD 01/16/2025 2:58 PM [facility] Basophils Absolute 0.08 0.00 - 0.20 K/mcL LAB HEMETOLOGY METHOD 01/16/2025 2:58 PM [facility] Immature Granulocytes Absolute 0.04(H) 0.00 - 0.03 K/mcL LAB HEMETOLOGY METHOD 01/16/2025 2:[address] [facility] Blood Venous blood specimen / Unknown Venipuncture / Unknown 01/16/2025 11:06 AM EDT 01/16/2025 11:06 AM EDT Echavarria Faulkner PROOF TESTER LAB BLOOD ORDERABLES Final Resul t [facility] [address] [place] [address], [place] [phone] * Sedimentation rate (01/16/2025 11:06 AM EDT) Sed Rate 6 0 - 30 mm/hr LAB HEMETOLOGY METHOD 01/16/2025 3:[address] [facility] Blood Venous blood specimen / Unknown Venipuncture / Unknown 01/16/2025 11:06 AM EDT 01/16/2025 11:06 AM EDT Echavarria Faulkner PROOF TESTER LAB BLOOD ORDERABLES Final Resul t Performing Organization Address [facility] [address]/ZIP Co de Phone Number [facility] [address] [place] [address], [place] [phone] * Culture urine (01/16/2025 11:06 AM EDT) Culture, Urine No growth 01/17/2025 10:[address] [facility] Urine Urine specimen from urethra / Unknown Non-blood Collection / Unknown 01/16/2025 11:06 AM EDT 01/16/2025 11:06 AM EDT us Echavarria Faulkner PROOF TESTER LAB MICROBIOLOGY - GENERAL ORDER RICARDO Final Result Performing Organization Address City/[facility] [address]/ZIP Co de Phone Number [facility] [address] [place] [address], [place] [phone] * C-reactive protein (01/16/2025 11:06 AM EDT) C-Reactive Protein <0.29 <=0.50 mg/dL LAB CHEMISTRY METHOD 01/16/2025 3:[address] [facility] Blood Venous blood specimen / Unknown Venipuncture / Unknown 01/16/2025 11:06 AM EDT 01/16/2025 11:06 AM EDT us Italia Faulkner PROOF TESTER LAB BLOOD ORDERABLES Final Resul t Performing Organization Address City/[facility] [address]/ZIP Co de Phone Number [facility] [address] [place] [address], [place] [phone] * Lipase (01/16/2025 11:06 AM EDT) Lipase 59 13 - 75 unit/L LAB CHEMISTRY METHOD 01/16/2025 4:[address] [facility] Blood Venous blood specimen / Unknown Venipuncture / Unknown 01/16/2025 11:06 AM EDT 01/16/2025 11:06 AM EDT us Italia Faulkner PROOF TESTER LAB BLOOD ORDERABLES Final Resul t Performing Organization Address City/[facility] [address]/ZIP Co de Phone Number [facility] [address] [place] [address], [place] [phone] * Amylase (01/16/2025 11:06 AM EDT) Amylase 41 25 - 115 unit/L LAB CHEMISTRY METHOD 01/16/2025 4:[address] [facility] Blood Venous blood specimen / Unknown Venipuncture / Unknown 01/16/2025 11:06 AM EDT 01/16/2025 11:06 AM EDT us Italia Faulkner PROOF TESTER LAB BLOOD ORDERABLES Final Resul t [facility] [address] [place] [address], * Comprehensive metabolic panel (01/16/2025 11:06 AM EDT) Sodium 141 133 - 145 mmol/L LAB CHEMISTRY METHOD 01/16/2025 4:06 PM [facility] Potassium 4.0 3.5 - 5.5 mmol/L LAB CHEMISTRY METHOD 01/16/2025 4:06 PM [facility] Chloride 107 96 - 110 mmol/L LAB CHEMISTRY METHOD 01/16/2025 4:06 PM [facility] CO2 27 21 - 32 mmol/L LAB CHEMISTRY METHOD 01/16/2025 4:06 PM [facility] Anion Gap 7 3 - 11 LAB CHEMISTRY METHOD 01/16/2025 4:06 PM [facility] Glucose 98 70 - 100 mg/dL LAB CHEMISTRY METHOD 01/16/2025 4:06 PM [facility] BUN 19 5 - 25 mg/dL LAB CHEMISTRY METHOD 01/16/2025 4:06 PM [facility] Creatinine 0.71 0.50 - 1.10 mg/dL LAB CHEMISTRY METHOD 01/16/2025 4:06 PM [facility] eGFR 97 >=60 mL/min/1. 73m2 LAB CHEMISTRY METHOD 01/16/2025 4:06 PM [facility] Comment:Calculation based on the Chronic Kidney Disease Epidemiology Collaboration (CKD-EPI) equation refit without adjustment for race. BUN/Creatinine Ratio 26.8 LAB CHEMISTRY METHOD 01/16/2025 4:06 PM [facility] Calcium 9.5 8.5 - 10.5 mg/dL LAB CHEMISTRY METHOD 01/16/2025 4:06 PM [facility] AST (SGOT) 27 10 - 42 unit/L LAB CHEMISTRY METHOD 01/16/2025 4:[address] [facility] ALT (SGPT) 28 10 - 60 unit/L LAB CHEMISTRY METHOD [facility]2025 [facility] Alkaline Phosphatase 116 42 - 121 unit/L LAB CHEMISTRY METHOD 01/16/2025 4:06 PM [facility] Total Protein 6.5 6.0 - 8.0 g/dL LAB CHEMISTRY METHOD 01/16/2025 4:[address] [facility] Albumin 3.7 3.2 - 5.0 g/dL LAB CHEMISTRY METHOD 01/16/2025 4:06 PM [facility] Total Bilirubin 0.2 0.0 - 1.4 mg/dL LAB CHEMISTRY METHOD 01/16/2025 4:06 PM [facility] Blood Venous blood specimen / Unknown Venipuncture / Unknown 01/16/2025 11:06 AM EDT 01/16/2025 11:06 AM EDT us Echavarria Faulkner PROOF TESTER LAB BLOOD ORDERABLES Final Resul t [facility] [facility] [address] [place] [address], [place] [phone] * (ABNORMAL) Lipid panel with reflex to direct LDL (08/11/2024 2:38 PM EST) Cholesterol 214(H) 0 - 200 mg/dL LAB CHEMISTRY METHOD 08/11/2024 8:[address] [facility] [facility] Triglycerides 170(H) 0 - 150 mg/dL LAB CHEMISTRY METHOD 08/11/2024 8:[address] [facility] HDL 116 >=40 mg/dL LAB CHEMISTRY METHOD 08/11/2024 8:[address] [facility] Comment:Results verified by repeat testing LDL Calculated 64 0 - 100 mg/dL LAB CHEMISTRY METHOD 08/11/2024 8:[address] [facility] VLDL Cholesterol Albert 34 mg/dL LAB CHEMISTRY METHOD 08/11/2024 8:[address] [facility] Non HDL Chol. (LDL+VLDL) 98 <145 mg/dL LAB CHEMISTRY METHOD 08/11/2024 8:[address] [facility] Chol/HDL Ratio 1.8 0.0 - 4.4 LAB CHEMISTRY METHOD 08/11/2024 8:[address] [facility] Blood Venous blood specimen / Unknown Venipuncture / Unknown 08/11/2024 2:38 PM EST 08/11/2024 2:38 PM EST Antonia Kuhn NP LAB BLOOD ORDERABLES Fi nal Result [facility] [address] [place] [address], from Last 3 Months or Most Recently Relevant to Health Maintenance Insurance MEDICAID - [place] MEDICARE Care Teams Food And Beverage Attendant Relationship Specialty Start Date End Date Adair Loyd DO [address] [place] [id number] PCP - General Internal Medicine 12/04/24
--- OUTSIDE RECORDS SUMMARY | 2025-03-11 11:54 | XMS_ITS | Clinical Summary ---
Author Organization [facility] Address [address] [facility] [address] [place] [id number] Phone Care Team Providers [employer] Name Role Phone GerardAdair phelps Primary Care Provider [phone] Self-Referred, Patient Unavailable Unavailab le Allergies Active Allergy Reactions Criticality Noted Date Comments Amoxicillin 08/01/2021 Itching Amoxicillin-Pot Clavulanate Hives 07/13/19 22 And tching Bee Pollen 08/01/2021 Trouble breathing Penicillin G Benzathin,Procain Hives 07/13 And itching Medications albuterol (PROVENTIL,VENT LEONIDAS) 2 mg/5 mL syrup Take 2 mg by mouth 3 (three) times a day. Active albuterol 90 mcg/actuation inhaler Inhale 2 puffs into the lungs every 6 (six) hours as needed for wheezing. Active fluticasone propion-salmete roL (ADVAIR DISKUS) 100-50 mcg/dose DISKUS Inhale 100 mcg/actuation of fluticasone into the lungs 2 (two) times a day. Active sertraline (ZOLOFT) 100 MG tablet Take 100 mg by mouth daily. Active omeprazole (PRILOSEC) 10 MG capsule Take 10 mg by mouth daily. Active EPINEPHrine 0.3 mg/0.3 mL auto-injector Inject 0.3 mg into the muscle as needed for anaphylaxis. Active alendronate (FOSAMAX) 70 MG tablet Take 70 mg by mouth every 7 days. 12/08/202 1 Active LORazepam (ATIVAN) 0.5 MG tablet Take 0.5 mg by mouth as needed. 2 Active indomethacin (INDOCIN) 50 MG capsule Take 50 mg by mouth. 2 Active tiotropium bromide (SPIRIVA RESPIMAT) 2.5 mcg/actuation mist for inhalation Inhale 2 puffs into the lungs as needed. 1 Active dicyclomine (BENTYL) 20 mg tablet Take 20 mg by mouth 2 (two) times a day. Active cholecalciferol (VITAMIN D3) 25 MCG (1,000 unit) tablet Take 2,000 Units by mouth daily. Active acetaminophen (TYLENOL) 500 MG tablet Take 500 mg by mouth as needed for pain (specific location in comments). Active acetaminophen (TYLENOL) 325 mg tablet Take 2 tablets (650 mg total) by mouth every 4 (four) hours as needed for mild pain. 30 tablet 2 Active ibuprofen (ADVIL,MOTRIN) 200 MG tablet Take 2 tablets (400 mg total) by mouth every 6 (six) hours as needed for pain (specific location in comments). 30 tablet 2 Active traMADoL (ULTRAM) 50 mg tablet Take 1 tablet (50 mg total) by mouth every 6 (six) hours as needed for pain (specific location in comments). 8 tablet 2 Active traMADoL (ULTRAM) 50 mg tablet Take 1 tablet (50 mg total) by mouth every 6 (six) hours as needed for pain (specific location in comments). 8 tablet 2 Active ibuprofen (ADVIL,MOTRIN) 600 MG tablet Take 1 tablet (600 mg total) by mouth every 6 (six) hours as needed for pain (specific location in comments). 30 tablet 2 Active acetaminophen (TYLENOL) 325 mg tablet Take 2 tablets (650 mg total) by mouth every 6 (six) hours as needed for mild pain. 30 tablet 2 Active ibuprofen (ADVIL,MOTRIN) 600 MG tablet Take 1 tablet (600 mg total) by mouth every 6 (six) hours as needed for pain (specific location in comments). 30 tablet 2 Active acetaminophen (TYLENOL) 325 mg tablet Take 2 tablets (650 mg total) by mouth every 6 (six) hours as needed for mild pain. 30 tablet 2 Active traMADoL (ULTRAM) 50 mg tablet Take 1 tablet (50 mg total) by mouth every 6 (six) hours as needed for pain (specific location in comments). 8 tablet 2 Active Active Problems Problem Noted Date Diagnosed Date Pelvic mass 08/25/2021 Social History Tobacco Use Types Packs/Day Years Used Date Smoking Tobacco: Every Day Cigarettes 0.3 30 Smokeless Tobacco: Never Alcohol Use Standard Drinks/Week Comments Yes 0 (1 standard drink = 0.6 oz pur e alcohol) social Education Answer Date Recorded Are you interested in more education? Not on yury e 11/04/2022 Are you concerned about learning? Not on file 11/04/2022 No 11/04/2022 No 11/04/2022 Digital Access Answer Date Recorded No 12/03/2022 No 12/03/2022 Reliable internet access at home? Not on file 12/03/2022 Device with a working camera? Not on file Comments No Sex and Gender Information Value Date Recorded Sex Assigned at Not on file Legal Sex Female 10:54 AM EST Gender Identity Not on file Sexual Orientation Not on file Last Filed Vital Signs Vital Sign Reading Time Taken Comments Blood Pressure 119/61 08/08/2021 12:15 PM EST Pulse 62 08/08/2021 11:45 AM EST Temperature 36.7 C (98 F) 08/08/2021 12:15 PM EST Respiratory Rate 32 08/08/2021 11:45 AM EST Oxygen Saturation 97% 08/08/2021 12:15 PM EST Inhaled Oxygen Concentration - - Weight 53.5 kg (118 lb) 08/01/2021 8:56 AM EST Height 160 cm (5' 2.99 ) 08/01/2021 8:56 AM EST Body Mass Index 20.91 08/01/2021 8:56 AM EST Plan of Treatment Health Maintenance Due Date Last Done Comments Adult Td,Tdap Booster 1963 LIPID PANEL 1963 DEPRESSION SCREENING 1975 SMOKING Hx and SMOKELESS TOBACCO SCREENING 10/26/1976 HEPATITIS C SCREENING 10/26/1981 HIV ONE-TIME SCREENING (18-6 5 YEARS) 10/26/1981 PAP SMEAR 10/26/1984 MAMMOGRAM 2003 COLOGUARD 10/26/2008 COLONOSCOPY 10/26/2008 COLORECTAL CANCER SCREENING 10/26/2008 FIT TEST 10/26/2008 FOBT 10/26/2008 SIGMOIDOSCOPY 10/26/2008 VIRTUAL COLONOSCOPY 10/26/2008 PNEUMOCOCCAL VACCINES (50+ years) (2 of 2 - PCV) 03/30/2012 03/30/2011 ZOSTER VACCINES (1 of 2) 10/26/2013 COVID-19 VACCINE (3 - 2023-2 5 season) 2024 08/01/2021, 07/04/2021 RSV VACCINE (1 - 1-dose 75+ series) 10/26/2038 HEPATITIS A VACCINES Aged Out No long er eligible based on patient's age to complete this topic HIB VACCINES Aged Out No longer eligi ble based on patient's age to complete this topic MENINGOCOCCAL VACCINES (ACWY) Aged Out No longer eligible based on patient's age to complete this topic MENINGOCOCCAL VACCINES (B) Aged Out N o longer eligible based on patient's age to complete this topic Medical Devices Not on file Insurance [employer] MEDICARE PART A & B [address] [place], [place] MED[place] PART A & B [address] [place] [facility] [address] [place] PART A & B [address] [place] PART A & B [facility] & B [place] MEDICARE PART A & [place] [address] [place] [address]HEALTH MEDICARE PART A & [facility] A & B Care Teams [employer] Driver Relationship Specialty Start Date End Date Adair Loyd DO [address] [place] [address] [address] [place] [address] PCP - General Internal Medicine 07/07/21 Self-Referred, Patient 07/07/21 Additional Source Comments The information contained in this document represents components of the legal health record. It is not the complete legal health record.[facility]
[2025-03-17 06:41] VITALS: BMI 24.4
[2025-03-17 06:55] VITALS: BP 125/85; PULSE 75; RESP 16; TEMP 36.6; O2SAT 95
[2025-03-17] MEDS: Lactated Ringers 1,000 ML 100 ML IVCONT (06:57)
--- NOTE | 2025-03-17 07:05 | HO.ANESPROP2 ---
Documented by User: Fariha Murcia NP 03/16/25 10:14 HPI - Anesthesia Eval Consult details Narrative: 59yo F for ?Colonoscopy PMFSH Past Medical History Medical History Depression Lung nodules History of colitis Arthritis Back pain COPD (chronic obstructive pulmonary disease) Family History Family history of problems with anesthesia: No Surgical History Surgical History History of partial hysterectomy Hx of cosmetic plastic surgery Hx of elbow surgery Hx of foot surgery History of bunionectomy H/O colonoscopy Hx of neck surgery History of total right knee replacement History of Problems with Anesthesia: No Social History Social History Patient Tobacco Use Status: Current someday Tobacco user Tobacco use type: Cigarette Cigarettes Per Day: 3 Years Smoked: 20 Use of substances other than those prescribed or required for medical reasons: Yes Substance Use Frequency: Occasionally Advance Directives: No Advance Directives Information Provided: Yes Meds Allergies Allergy/AdvReac Type Severity Reaction Status Date / Time bee pollen (bee stings) Allergy Severe Anaphylaxis Verified 08/16/20 15:43 amoxicillin Allergy Intermediate Hives Verified 08/16/20 15:43 clavulanic acid (From Allergy Intermediate Hives Verified 08/16/20 15:43 Augmentin) Penicillins Allergy Intermediate Hives Verified 08/16/20 15:43 Home Medications ?Medication ?Instructions ?Recorded ?Confirmed ?Last Taken ?Type albuterol sulfate 90 mcg/actuation 2 puff inhalation Q4H PRN 01/30/24 03/17/25 03/17/25 06:00 History aerosol inhaler (Ventolin HFA) Shortness Of Breath Or Wheezing fluticasone furoate 100 1 inh inhalation DAILY 01/30/24 03/17/25 Unknown History mcg/actuation blister powder for inhalation (Arnuity Ellipta) fluticasone propionate 50 1 spray intranasal DAILY 01/30/24 03/17/25 Unknown History mcg/actuation nasal spray,suspension sertraline 100 mg tablet 150 mg PO DAILY 01/30/24 03/17/25 Unknown History Assessment and Plan Assessment Anesthesia Assessment: Chart Reviewed Final Anesthetic Review Family History of Problems with Anesthesia: No History of Problems with Anesthesia: No Documented by User: Jesenia Novak DO 03/17/25 07:16 PMFSH Past Medical History Medical History Depression Lung nodules History of colitis Arthritis Back pain COPD (chronic obstructive pulmonary disease) Family History Family history of problems with anesthesia: No Surgical History Surgical History History of partial hysterectomy Hx of cosmetic plastic surgery Hx of elbow surgery Hx of foot surgery History of bunionectomy H/O colonoscopy Hx of neck surgery History of total right knee replacement History of Problems with Anesthesia: No Social History Social History Patient Tobacco Use Status: Current someday Tobacco user Tobacco use type: Cigarette Cigarettes Per Day: 3 Years Smoked: 20 Use of substances other than those prescribed or required for medical reasons: Yes Substance Use Frequency: Occasionally Advance Directives: No Advance Directives Information Provided: Yes Meds Allergies Allergy/AdvReac Type Severity Reaction Status Date / Time bee pollen (bee stings) Allergy Severe Anaphylaxis Verified 08/16/20 15:43 amoxicillin Allergy Intermediate Hives Verified 08/16/20 15:43 clavulanic acid (From Allergy Intermediate Hives Verified 08/16/20 15:43 Augmentin) Penicillins Allergy Intermediate Hives Verified 08/16/20 15:43 Home Medications ?Medication ?Instructions ?Recorded ?Confirmed ?Last Taken ?Type albuterol sulfate 90 mcg/actuation 2 puff inhalation Q4H PRN 01/30/24 03/17/25 03/17/25 06:00 History aerosol inhaler (Ventolin HFA) Shortness Of Breath Or Wheezing fluticasone furoate 100 1 inh inhalation DAILY 01/30/24 03/17/25 Unknown History mcg/actuation blister powder for inhalation (Arnuity Ellipta) fluticasone propionate 50 1 spray intranasal DAILY 01/30/24 03/17/25 Unknown History mcg/actuation nasal spray,suspension sertraline 100 mg tablet 150 mg PO DAILY 01/30/24 03/17/25 Unknown History Exam Exam Date and Time: 03/17/25 0705 Height,Weight and Vital Signs: Height 5 ft 4 in Weight 64.5 kg Vital Signs Temperature 97.8 F 03/17/25 06:55 Pulse Rate 75 03/17/25 06:55 Respiratory Rate 16 03/17/25 06:55 Blood Pressure 125/85 03/17/25 06:55 Pulse Oximetry 95 03/17/25 06:55 Oxygen Delivery Method Room Air 03/17/25 06:55 Temperature 97.8 F 03/17/25 06:55 Pulse Rate 75 03/17/25 06:55 Respiratory Rate 16 03/17/25 06:55 Blood Pressure 125/85 03/17/25 06:55 Pulse Oximetry 95 03/17/25 06:55 Oxygen Delivery Method Room Air 03/17/25 06:55 Airway Mallampati Class: I TM Dist: >3cm Neck ROM: Full Loose/Missing/Broken Teeth: No (patient denies any loose or broken teeth) Heart: S1S2 Lungs: CTAB Assessment and Plan Assessment Anesthesia Assessment: Anesthesia Plan Discussed and Chart Reviewed Final Anesthetic Review Family History of Problems with Anesthesia: No History of Problems with Anesthesia: No NPO: Yes ASA Class: II Final Preanesthetic Review: No Changes in Pt Med Stat, Meds/Allgs Chart Reviewed, Consent Obtained/Reviewed and Anes Risks/Benef Reviewed Patient Risk: Low Procedure Risk: Low Anesthetic Plan Anesthetic Plan: MAC: and Agree w/ Assess. and Plan Disposition: Standard PACU
--- NOTE | 2025-03-17 07:34 | MHC.SHP ---
Pre-Procedural Eval Section A - 24 Hr Update-Section A only Date of Service: 03/17/25 The patient is an INPATIENT: No Changes since office visit: No Cold of Flu in the past 2 weeks, No New Medical Problems, No Changes in Medication and No Patient answered all questions The patient has been examined within 24 hours of the surgical procedure. The History & Physical has been completed within 30 days and I have reviewed it.: Yes Section B - Complete if H&P > 30 days Chief Complaint: diarrhea,abnormal CT scan Allergies: Allergies Allergy/AdvReac Type Severity Reaction Status Date / Time bee pollen (bee stings) Allergy Severe Anaphylaxis Verified 08/16/20 15:43 amoxicillin Allergy Intermediate Hives Verified 08/16/20 15:43 clavulanic acid (From Allergy Intermediate Hives Verified 08/16/20 15:43 Augmentin) Penicillins Allergy Intermediate Hives Verified 08/16/20 15:43 Plan I have reviewed the history and physical and performed a pertinent physical examination on my patient. No changes have occurred unless specified. Time Spent With Patient Time: Total time managing care of this patient today ____ minutes.
[2025-03-17 08:02] VITALS: BP 117/71; PULSE 67; RESP 16; TEMP 36.2; O2SAT 97
[2025-03-17 08:16] VITALS: BP 118/87; PULSE 64; RESP 16; TEMP 17.7; O2SAT 96
--- NOTE | 2025-03-17 10:03 | OP_ITS ---
DATE OF SERVICE: 03/17/2025 SURGEON: John Chamberlain MD INDICATIONS: Abnormal CT scan of the ileum. PREOPERATIVE DIAGNOSIS: POSTOPERATIVE DIAGNOSIS: PROCEDURE PERFORMED: Colonoscopy to the terminal ileum with biopsy. ESTIMATED BLOOD LOSS: COMPLICATIONS: ANESTHESIA: Monitored anesthesia care. ASSISTANTS: SPECIMENS: DESCRIPTION OF PROCEDURE: A history and physical was performed. The risks and benefits of the procedure were explained to the patient. Informed consent was obtained. The patient was placed in the left lateral decubitus position. A digital rectal exam was performed and was found to be normal. The Olympus pediatric video colonoscope was introduced into the rectum and advanced to the cecum. The cecum was identified by transillumination, palpation, and identification of the ileocecal valve. Examination was performed. The scope was removed. She tolerated the procedure well and was returned to the recovery area in stable condition. FINDINGS: The terminal ileum was examined and appeared normal. This was examined for approximately 10 cm. There was no evidence of ileitis. Biopsies were obtained from the terminal ileum. The visualized colonic mucosa was normal. There was no evidence of colitis. The quality of the prep was good. Biopsies were obtained throughout the colon. Retroflexed examination showed small internal hemorrhoids. IMPRESSION: Normal colonoscopy. RECOMMENDATION: 1. Follow up the biopsy results. 2. Repeat colonoscopy is recommended in 10 years for average-risk individuals. MD AVANI Marks/ENZOL / [id number]
== END 2025-03-17 09:12 | disposition home or self-care (01) ==
PROVIDERS: PCP Internal Medicine; Visit Provider Internal Medicine Gastroenterology
PROC: 0DJD8ZZ Inspection of Lower Intestinal Tract, Via Natural or Artificial Opening Endoscopic (ICD-10-PCS; CPT 45378; principal; 2025-03-17 07:30)
DX: R19.4 Change in bowel habit (principal); K64.8 Other hemorrhoids; R93.3 Abnormal findings on diagnostic imaging of other parts of digestive tract; J44.9 Chronic obstructive pulmonary disease, unspecified; K21.9 Gastro-esophageal reflux disease without esophagitis; F17.210 Nicotine dependence, cigarettes, uncomplicated; Z79.899 Other long term (current) drug therapy
CPT/HCPCS: 45380; 88305; J2003; J2704